=== PATIENT | male | born 1945 | race Caucasian/White ===

== ENCOUNTER 2018-10-13 09:27 | Outpatient (CLI) | payer MEDICARE, OTHER ==
--- NOTE | 2018-10-13 11:38 | CT ---
CONTRAST ENHANCED CTA ABDOMEN AND PELVIS: HISTORY: Abdominal aortic aneurysm. TECHNIQUE: Contrast-enhanced CTA of abdominal aorta and pelvis obtained. 2-D and 3-D reconstruction images performed on an independent 3-D workstation. FINDINGS: The lung bases are unremarkable. No evidence of free intraperitoneal air seen. Bilateral inguinal hernias seen with some fluid and intraperitoneal fat in the inguinal hernias. The liver and spleen are unremarkable. The gallbladder and pancreas are unremarkable. Adrenal glands unremarkable. The right kidney is unremarkable. Cortical cyst seen in the midpole of the left kidney. There is a large infrarenal abdominal aortic aneurysm, diameter measuring 5.1 x 5.1 cm, inferior to t he renal arteries. The origin of this aneurysm is approximately 1.7 cm below the takeoff of the renal arteries. Superior inferior length measures approximately 4.3 cm. The aneurysm involves the infraren al abdominal aorta not extending into the iliac arteries. Atherosclerotic calcifications seen in both common iliac arteries. There is a right distal common iliac and arterial stent. There is flow seen proximal and distal to th is. Atherosclerotic calcifications seen in the origin of the superior mesenteric artery. Inferior mesente shruthi artery is also patent. IMPRESSION: Infrarenal abdominal aortic aneurysm as described above. Transcribed Date/Time: 10/13/2018 11:43 AM
== END 2018-10-13 09:28 | disposition home or self-care (01) ==
LOC: BICCT 09:27
PROVIDERS: ATTEND Thoracic Surgery (Cardiothoracic Vascular Surgery)
DX: I71.4 Abdominal aortic aneurysm, without rupture (principal)
CPT/HCPCS: 75635; 82565

== ENCOUNTER 2018-12-06 00:10 | Outpatient (CLI) | payer MEDICARE, OTHER ==
--- NOTE | 2018-12-06 11:45 | RAD ---
EXAM: Chest Two Views 12/06/2018 11:41 AM HISTORY: Preop COMPARISON: None. FINDINGS: Heart: Heart size is normal. There are mild vascular calcifications involving the thoracic aortic arc h. Pulmonary vessels: Normal. Costophrenic angles: Clear. Lungs: No confluent pneumonia, overt edema, pleural effusion, or other acute process. Pneumothorax: None. Osseous structures:There is scattered degenerative and osteoarthritic change present. Additional findings: There is a 6 x 4 mm radiopaque foreign body within the left anterior chest wal l. IMPRESSION: No acute cardiopulmonary abnormality. Retained metallic foreign body within the anterior left chest w all.
--- NOTE | 2018-12-07 20:23 | EKG ---
Test Reason : Blood Pressure : / mmHG Vent. Rate : 067 BPM Atrial Rate : 067 BPM P-R Int : 146 ms QRS Dur : 088 ms QT Int : 366 ms P-R-T Axes : 058 -01 012 degrees QTc Int : 386 ms Sinus rhythm with marked sinus arrhythmia Possible Anterior infarct , age undetermined Abnormal ECG No previous ECGs available Confirmed by DR. Danny SALGADO MD ([id number]) on 12/07/2018 8:23:22 PM Referred By: ERMELINDA Confirmed By:DR. Danny SALGADO MD
== END 2018-12-06 00:11 | disposition home or self-care (01) ==
LOC: LABBT 00:10
PROVIDERS: ATTEND Thoracic Surgery (Cardiothoracic Vascular Surgery)
DX: Z01.818 Encounter for other preprocedural examination (principal); I71.4 Abdominal aortic aneurysm, without rupture
CPT/HCPCS: 71046; 93005; 93010

== ENCOUNTER 2018-12-06 10:15 | Inpatient (IN) | payer MEDICARE, OTHER ==
[2018-12-06 13:06] LABS: Hemoglobin 14.9 g/dL (14.0-18.0); Mean Corpuscular HGB CONC 33.1 g/dL (32.0-36.0); Mean Corpuscular Hemoglobin 33.4 pg (27.0-31.0); Mean Platelet Volume 9.2 fL (7.4-10.4); Platelet Count 190 thou/uL (130-400); RBC Distribution Width 12.7 % (11.5-14.5); Red Blood Cell (RBC) Count 4.45 mill/uL (4.70-6.10); White Blood Cell (WBC) Count 6.2 thou/uL (4.8-10.8)
[2018-12-06 13:43] LABS: Anion Gap 11 mmol/L (10-20); BUN (Urea Nitrogen) 17 mg/dL (8.4-25.7); Calc. Creatinine Clearance 0 mL/min (70-130); Calcium 9.8 mg/dL (7.8-10.44); Carbon Dioxide 22 mmol/L (23-31); Chloride 107 mmol/L (98-107); Estimated GFR-MDRD 82; Glucose 128 mg/dL (83-110); Sodium 136 mmol/L (136-145)
[2018-12-07] MEDS ORDERED: Ropivacaine 0.2% HCl/PF 20 ML ONE ×2 (06:37→10:28)
[2018-12-07] MEDS ORDERED: Fentanyl 100 MCG/2 ML VIAL ONE (06:54)
[2018-12-07] MEDS ORDERED: Midazolam HCl 2 mg/2 ml Vial ONE (06:54)
[2018-12-07] MEDS ORDERED: Fentanyl 250 MCG/5 ML VIAL ONE (07:17)
[2018-12-07] MEDS ORDERED: Nitroglycerin 50 MG/250 ML BOT 250 ML ONE (07:18)
[2018-12-07] MEDS ORDERED: Norepinephrine 4 MG/4 ML VIAL ONE (07:18)
[2018-12-07] MEDS ORDERED: Phenylephrine HCL 10 MG/ML VIAL ONE (07:18)
--- NOTE | 2018-12-07 07:28 | HP ---
DATE OF ANTICIPATED ADMISSION: 12/07/2018. CHIEF COMPLAINT: Abdominal aortic aneurysm. HISTORY OF PRESENT ILLNESS: The patient is a 73-year-old man, who recently moved here from [place]. He describes a small abdominal aortic aneurysm having been found while working up sciatica. His description is that it was still fairly small on ultrasound about 2 years ago and he is now reestablishing followup. The patient has no abdominal or back pain, his sciatica has since resolved. He had iliac stenting for right lower extremity claudication symptoms that have since resolved. PAST MEDICAL HISTORY: Significant for gout, hyperlipidemia, hypertension, benign prostatic hypertrophy, history of pericarditis. MEDICATIONS: His home medications are; 1. Allopurinol. 2. Flomax. 3. Coreg. 4. Lisinopril. 5. Norvasc. 6. Baby aspirin. ALLERGIES: HE DENIES ANY MEDICAL ALLERGIES. SOCIAL HISTORY: He had about a one to one and half pack per day smoking habit for 25 to 30 years, but quit about 20 or 30 years ago. FAMILY HISTORY: Negative for any known history of aneurysms. He says that his mother in her 40s of a "blood clot, that broke loose" and he is estranged from his father, who of unknown causes in his 50s. REVIEW OF SYSTEMS: Negative for any chest pain, shortness of breath, orthopnea, PND, and claudication. Eye, speech, facial, or extremity symptoms to suggest TIAs. PHYSICAL EXAMINATION: VITAL SIGNS: A heart rate of 91 and blood pressure 135/97. He is 5 feet 7 inches and weighs 158.5 pounds. NECK: He has no xanthelasma. No JVD. No carotid bruits. CHEST: Clear to auscultation. HEART: He has a regular rate and rhythm without any murmur. ABDOMEN: Soft and nontender. I was not able to appreciate any masses or bruits and palpable radial, femoral, and posterior tibial pulses bilaterally. His right femoral is somewhat diminished. Both femorals were associated with bruits. I was not able to appreciate popliteals or the dorsalis pedis pulses. NEUROLOGIC: Grossly nonfocal. He had no clubbing, cyanosis, or edema. ASSESSMENT AND PLAN: His CT scan showed an infrarenal aneurysm measuring about 5.1 cm both AP and transverse. It appears that he has an iliac stent on the right side that projects into the aorta and there may be some stenosis of it. His iliacs were somewhat enlarged at the common iliac level. Of note; however, that he has extensive thrombotic and atherosclerotic debris in his aorta, leaving him very small residual lumen within the aorta, the aneurysm goes up in very close proximity to his renals. There is debris in the aorta at the level of the renals and even a little bit above, all making this a very problematic EVAR approach. He has undergone cardiology screening with stress test and echocardiography that shows good left ventricular function and no evidence of ischemia and I have recommended open aorta bi-iliac grafting. Job ID: [id number]
[2018-12-07] MEDS ORDERED: Heparin 10,000 UNITS/1 ML VIAL ONE (07:54)
[2018-12-07] MEDS ORDERED: Albumin 5% 500 ML ONE ×2 (07:54→10:43)
[2018-12-07] MEDS ORDERED: Mannitol 12.5 GM/50 ML ONE ×2 (07:54→09:05)
[2018-12-07] MEDS ORDERED: Heparin 5,000 UNITS/ML VIAL ONE (08:31)
[2018-12-07] MEDS ORDERED: Ropivacaine 0.2% 550 ML 550 ML NERVE BLCK SCH (08:45)
[2018-12-07] MEDS ORDERED: Sodium Bicarb 50 MEQ/50 ML VIAL ONE (09:22)
[2018-12-07] MEDS ORDERED: Protamine Sulfate 250 MG/25 ML VIAL ONE (10:17)
[2018-12-07] MEDS ORDERED: Protamine Sulfate 50 MG/5 ML VIAL ONE (10:17)
[2018-12-07] MEDS ORDERED: ROPIVACAINE HCL NERVE BLCK SCH (10:45)
[2018-12-07 12:53] LABS: #Eosinphils 0.1 thou/uL (0.0-0.7); #Lymphocytes 2.2 thou/uL (1.20-3.40); #Monocytes 1.1 thou/uL (0.11-0.59); #Neutrophils 13.2 thou/uL (1.40-6.50); %Basophils 0.2 % (0.0-1.0); %Eosinophils 0.7 % (0.0-10.0); %Lymphocytes 13.1 % (21.0-51.0); %Monocytes 6.5 % (0.0-10.0); %Neutrophils 79.6 % (42.0-75.0); Hemoglobin 12.6 g/dL (14.0-18.0); Mean Corpuscular HGB CONC 33.1 g/dL (32.0-36.0); Mean Corpuscular Hemoglobin 33.7 pg (27.0-31.0); Mean Platelet Volume 8.4 fL (7.4-10.4); Platelet Count 148 thou/uL (130-400); RBC Distribution Width 12.3 % (11.5-14.5); Red Blood Cell (RBC) Count 3.73 mill/uL (4.70-6.10); White Blood Cell (WBC) Count 16.6 thou/uL (4.8-10.8)
--- NOTE | 2018-12-07 12:54 | RAD ---
Exam: Chest one view: HISTORY: Postoperative for bowel aortic aneurysm: COMPARISON: 12/22/2018 FINDINGS: Monitor leads overlie the chest. NG tube is in place. Right subclavian catheter tip extends into the left innominate/subclavian vein junction region. Mild bilateral vascular congestion increased linear and interstitial opacity changes in the hilar region. No confluent pneumonia. No significant p leural effusion. IMPRESSION: Bilateral vascular congestion. Right subclavian catheter with the tip extending into the left innomin ate/subclavian vein junction. Less inspiration. Continued short-term follow-up.
[2018-12-07] MEDS ORDERED: Morphine 4 MG/ML VIAL ONE ×2 (13:11→14:09)
[2018-12-07 13:18] LABS: Anion Gap 9 mmol/L (10-20); BUN (Urea Nitrogen) 15 mg/dL (8.4-25.7); Calc. Creatinine Clearance 69 mL/min (70-130); Calcium 7.8 mg/dL (7.8-10.44); Carbon Dioxide 24 mmol/L (23-31); Chloride 111 mmol/L (98-107); Estimated GFR-MDRD 78; Glucose 145 mg/dL (83-110); Potassium 4.1 mmol/L (3.5-5.1); Sodium 140 mmol/L (136-145)
[2018-12-07] MEDS ORDERED: hydrALAZINE 20 MG/ML VIAL SLOW IVP PRN ×2 (14:48→14:49)
[2018-12-07] MEDS ORDERED: Metoprolol Tartrate 5 MG/5 ML VIAL IVP PRN ×2 (14:50→14:51)
[2018-12-07] MEDS: Acetaminophen 1,000 MG in Premix Bag 1 BAG IVPB SCH ×2 (14:51→21:08)
[2018-12-07] MEDS ORDERED: Morphine 2 MG/ML SYRINGE SLOW IVP PRN (15:19)
[2018-12-07] MEDS: Sodium Chloride 0.9% 1,000 ML IV SCH ×2 (15:46→21:09)
[2018-12-07] MEDS: Morphine 10 MG/ML VIAL SLOW IVP PRN ×2 (15:47→17:06)
[2018-12-07] MEDS ORDERED: Morphine Sulfate 100 MG in Dextrose 5% in Water 98 ML IV SCH (17:24)
[2018-12-07] MEDS ORDERED: Morphine 10 MG/ML VIAL SLOW IVP PRN (17:30)
[2018-12-07 17:45] VITALS: BMI 27.9
--- NOTE | 2018-12-07 21:09 | OP ---
DATE OF PROCEDURE: 12/07/2018 PROCEDURES PERFORMED: 14 x 7 mm Hemashield [id number] iliac repair of abdominal aortic aneurysm. Right subclavian central line placement and On-Q PainBuster catheter placement x2. PREOPERATIVE DIAGNOSIS: Juxtarenal abdominal aortic aneurysm with combined aortoiliac occlusive disease. POSTOPERATIVE DIAGNOSIS: Juxtarenal abdominal aortic aneurysm with combined aortoiliac occlusive disease. WOOD BUFFER: Dr. Td Hawley. ANESTHESIA: General endotracheal anesthesia. INDICATIONS: The patient is a 73-year-old man with an abdominal aortic aneurysm found during the workup of sciatica symptoms. It has now grown to be in excess of 5 cm in size compared to the purported 2 to 2.5 cm size that he described on its original discovery when [place]. The location of the aneurysm and the heavy burden of atherosclerotic and thrombotic debris made endovascular repair quite problematic and he physiologically as well as anatomically was a good open candidate. He is now taken to the operating room for open repair of his aneurysm. FINDINGS: Heavy and complex pattern of plaquing and thrombotic debris within the juxtarenal aneurysm with essentially no neck below the renals. Heavy plaque in the proximal to mid common iliacs with right iliac stent projecting into the lumen of the aorta. Suprarenal clamp time 26 minutes. DESCRIPTION OF PROCEDURE: After informed consent was obtained, the patient was taken to the operating room, placed in supine position on the operating table. After the induction of general anesthesia, the patient's right upper chest was prepped and draped in sterile fashion and he was placed in Trendelenburg. A triple lumen central line kit was used to place a right subclavian central line by the Seldinger technique. Multiple sticks were required and multiple guidewires were required because of difficulty threading the wire and the wire kinking. Ultimately, the wire and catheter went smoothly and all 3 ports aspirated and flushed easily. The line was secured to the skin with suture. The patient's torso, groins, and lower extremities were then prepped and draped in sterile fashion. A vertical midline celiotomy incision was made from about the level of the xiphoid to just above the pubis. The abdominal cavity was entered superiorly and the incision completed. Arnol retractor was put into place. The spleen was not visualized. The liver and gallbladder appeared normal. There were no obvious abnormalities of the small bowel or colon. The stomach was visualized as well as palpated in the course of verifying positioning of the nasogastric tube. No abnormalities were appreciated. The ligament of Treitz and filmy adhesions of the small bowel to the aneurysm were lysed. The transverse colon was retracted superiorly and the small bowel to the right. The retroperitoneal tissues overlying the aneurysm were incised, sparing the inferior mesenteric vein. The incision was carried distally just a little bit beyond the bifurcation. The left renal vein was identified and the aorta was identified deep to that on either side of the vein. The renal arteries were identified and dissected free. They were soft, although the right one was somewhat tortuous. The aorta itself had extensive hard plaque palpable in it and the aneurysm extended almost all the way up to the origin of the renal arteries. There was a very short space between the superior mesenteric artery and the renals. The iliacs were identified down to their bifurcations, while there was extensive plaque within the common iliacs, they were of reasonable size, it was unclear how much of what was being palpated in the right common iliac represented stent and how much represented eccentric calcified plaque. The internal and external iliacs on the right side were soft and were separately isolated. The inferior mesenteric artery was exposed. After adequate circulation time of heparin and administration of mannitol, the renal arteries were clamped. The iliac systems were clamped and then a suprarenal aortic clamp was applied between the renal arteries and the superior mesenteric artery. The aneurysm was entered using electrocautery and scissors. There was complex plaquing and shelves of calcified plaque and thrombotic material within the aneurysm. This was debrided and brisk back bleeding from the inferior mesenteric that was unmasked in this process was controlled by suture ligating the REID at its origin. Bleeding lumbars were similarly controlled with [id number] sutures and attention was then turned to the proximal stump of the aorta. It was serially debrided and forcefully irrigated until it was cleared of loose thrombotic debris and essentially had been endarterectomized of hard plaque. A 14 x 7 mm Hemashield graft was trimmed to length and anastomosed to the proximal stump of the aorta at the level of the renal arteries with running 3-0 Prolene suture. The renal arteries were allowed to back bleed and were again clamped and then the aortic clamp was briefly released to flush the aorta and graft and then reapplied. The graft was clamped and the clamps on the aorta and renals were removed and the suture line inspected for hemostasis. Two bleeding points along the anterior portion of the suture line were controlled with pledgeted horizontal mattress sutures. The graft on the clamp was repositioned proximally in the left limb of the graft, and the left iliac system was bivalved and then orin-transected near the bifurcation. Sarot clamps were used to perform an eversion type endarterectomy there to debride the vessel of hard calcified plaque, the left limb of the graft was trimmed to length and anastomosed end to end there with running 5-0 Prolene suture. The standing rock vessels were allowed to back bleed and that limb of the graft was flushed and the suture line secured. Pressure was held in the left groin as flow into that limb was released, so that flow would initially go into the pelvis before going into the leg. The right common iliac was transected just proximal to the bifurcation and similarly endarterectomized and grafted with flow into both legs and the suture line was hemostatic. The heparin was reversed with protamine. Bleeding from one of the previously oversewn lumbars was controlled with suture and then the aneurysm wall and retroperitoneal tissues were reapproximated to cover the graft. Care was taken along the right iliac system, where the ureter had been exposed to interpose tissue between the suture line and the ureter before re-retroperitonealizing the graft. The bowel wall appeared viable with good refill. The midline fascia was closed with a running double-stranded #1 PDS. Subcutaneous tissue was irrigated. On-Q PainBuster catheters were brought out through separate stabs using an introducer kit and placed in the wound. 2-0 Vicryl was used to close the subcutaneous tissue over those catheters and 3-0 Vicryl subcuticular suture was used to close the skin. 0.2% ropivacaine was bolused in the each of the catheters to bathe the wound with ropivacaine and those catheters were then hooked up to the reservoir pump. The wound was dressed and the patient was taken to the intensive care unit in stable condition. Estimated blood loss during the procedure was 1000 mL. The patient received 1800 mL of crystalloid, 1000 mL of 5% albumin, 25 g of mannitol, and 656 mL of Cell Saver transfusion. Urine output was 800 mL. Instrument, needle, and sponge counts were correct. Job ID: [id number]
[2018-12-08] MEDS: Sodium Chloride 0.9% 1,000 ML IV SCH ×4 (00:25→12:25)
[2018-12-08] MEDS: Acetaminophen 1,000 MG in Premix Bag 1 BAG IVPB SCH ×2 (03:53→08:46)
[2018-12-08] MEDS ORDERED: Morphine 10 MG/ML VIAL SLOW IVP PRN (07:25)
[2018-12-08] MEDS ORDERED: Morphine Sulfate 100 MG in Dextrose 5% in Water 98 ML IV SCH ×2 (07:30)
[2018-12-08 07:39] LABS: #Lymphocytes 1.4 thou/uL (1.20-3.40); #Monocytes 1.3 thou/uL (0.11-0.59); %Basophils 0.4 % (0.0-1.0); %Eosinophils 0.1 % (0.0-10.0); %Monocytes 10.4 % (0.0-10.0); %Neutrophils 78.2 % (42.0-75.0); Hemoglobin 11.7 g/dL (14.0-18.0); Mean Corpuscular HGB CONC 33.8 g/dL (32.0-36.0); Mean Corpuscular Hemoglobin 34.5 pg (27.0-31.0); Mean Platelet Volume 8.9 fL (7.4-10.4); Platelet Count 136 thou/uL (130-400); RBC Distribution Width 12.9 % (11.5-14.5); Red Blood Cell (RBC) Count 3.39 mill/uL (4.70-6.10); White Blood Cell (WBC) Count 12.7 thou/uL (4.8-10.8)
--- NOTE | 2018-12-08 07:52 | RAD ---
AP view chest HISTORY: Abdominal aortic aneurysm. Chest pain. AP view chest obtained on 12/08/2018. Comparison made to previous exam from 12/07/2018. Cardiomegaly seen. Pulmonary vascular congestion seen. No evidence of acute intrathoracic abnormaliti es noted. No significant interval changes seen. A right subclavian central line is seen crossing the midline distal tip overlying the left subclavian region. IMPRESSION: Cardiomegaly and pulmonary vascular congestion.
[2018-12-08 07:55] LABS: Anion Gap 10 mmol/L (10-20); BUN (Urea Nitrogen) 16 mg/dL (8.4-25.7); Calc. Creatinine Clearance 86 mL/min (70-130); Calcium 7.6 mg/dL (7.8-10.44); Carbon Dioxide 21 mmol/L (23-31); Chloride 114 mmol/L (98-107); Estimated GFR-MDRD 88; Glucose 118 mg/dL (83-110); Potassium 4.3 mmol/L (3.5-5.1); Sodium 141 mmol/L (136-145)
[2018-12-08] MEDS: Ketorolac Tromethamine 30 MG/ML VIAL IVP SCH ×3 (09:19→21:52)
[2018-12-08] MEDS ORDERED: Potassium Chloride 40 MEQ in Premix Bag 1 BAG IVPB PRN (11:59)
[2018-12-08] MEDS ORDERED: CCU ELECTROLYTE REPLACEMENT PROTOCOL FS PRN (11:59)
[2018-12-08] MEDS ORDERED: PHOS-NAK 1 PKT PACK PO PRN ×2 (11:59)
[2018-12-08] MEDS ORDERED: Potassium Chloride 40 MEQ in Sodium Chloride 0.9% 250 ML 250 ML IVPB PRN (11:59)
[2018-12-08] MEDS ORDERED: Magnesium 2 GM/50 ML 2 GM in Premix Bag 1 BAG IVPB PRN (11:59)
[2018-12-08] MEDS ORDERED: Potassium Chloride 20 MEQ TAB PO PRN (11:59)
[2018-12-08] MEDS ORDERED: Potassium Phosphate 12 MMOL in Sodium Chloride 0.9% 250 ML 250 ML IV PRN (11:59)
[2018-12-08] MEDS ORDERED: Potassium Phosphate 9 MMOL in Sodium Chloride 0.9% 100 ML IVPB PRN (11:59)
[2018-12-08] MEDS ORDERED: Potassium Phosphate 15 MMOL in Sodium Chloride 0.9% 250 ML 250 ML IV PRN (11:59)
[2018-12-08] MEDS ORDERED: Magnesium Oxide 400 MG TAB PO PRN ×2 (11:59)
--- NOTE | 2018-12-08 12:08 | CON ---
DATE OF CONSULTATION: REASON FOR CONSULT: He is a 74-year-old gentleman, status post abdominal aortic aneurysm surgery. Postop in the ICU. He is extubated. He is having some pain, but denies difficulty breathing. His aneurysm infrarenal had increased to 5 cm, cause of several years. PAST MEDICAL HISTORY: Pertinent mainly for hypertension, BPH, previous pericarditis, previous hyperlipidemia. HOME MEDICATION: 1. Flomax 0.4. 2. Lovastatin 40. 3. Lisinopril 30. 4. Folic acid. 5. B2. 6. Aspirin. 7. Norvasc 10. 8. Allopurinol 100. 9. Tylenol p.r.n. ALLERGIES: NONE. PAST SURGERIES: Otherwise unremarkable. Tobacco, quit smoking 30 years ago. Alcohol, not significant. SOCIAL AND FAMILY HISTORY: Unremarkable. REVIEW OF SYSTEMS: Ten-point negative. PHYSICAL EXAMINATION: GENERAL: He is awake, alert, and responsive. VITAL SIGNS: Blood pressure pulse 92, respiratory rate 15, sats 96%. CHEST: No wheezing, crackles. CARDIAC: Normal S1, S2. No gallops. ABDOMEN: No masses. NEURO: He is awake, alert, responsive. Platelet count 136, H and H stable. White count 12,000. Lytes are normal. Renal function is normal. Chest x-ray is clear. IMPRESSION: 1. Status post abdominal aortic aneurysm repair. 2. Hypertension. 3. Gout. 4. Former smoker. DISPOSITION: As per Surgery. PT, supportive care. We will follow while in the ICU. 70 minutes, 50% direct patient care. Job ID: [id number]
[2018-12-09] MEDS: Sodium Chloride 0.9% 1,000 ML IV SCH ×3 (04:01→23:26)
[2018-12-09] MEDS: Ketorolac Tromethamine 30 MG/ML VIAL IVP SCH ×4 (04:03→20:34)
[2018-12-09 04:22] LABS: Anion Gap 11 mmol/L (10-20); BUN (Urea Nitrogen) 21 mg/dL (8.4-25.7); Calc. Creatinine Clearance 83 mL/min (70-130); Calcium 8.2 mg/dL (7.8-10.44); Carbon Dioxide 20 mmol/L (23-31); Chloride 115 mmol/L (98-107); Estimated GFR-MDRD 85; Glucose 129 mg/dL (83-110); Sodium 142 mmol/L (136-145)
[2018-12-09] MEDS: Metoprolol Tartrate 5 MG/5 ML VIAL IVP PRN (04:49)
--- NOTE | 2018-12-09 08:37 | PRG ---
DATE OF SERVICE: 12/09/2018 SUBJECTIVE: This morning, he is awake, alert, and responsive. Last night, he was confused. He pulled his Nayak catheter out. OBJECTIVE: VITAL SIGNS: His blood pressure is 164/85, his sats are 95% on room air, pulse 132, respiratory rate 25. GENERAL: Denies any pain or discomfort. Denies any shortness of breath. CHEST: Decreased breath sounds. No wheezing. CARDIAC: Normal S1, S2. No gallop. ABDOMEN: No masses. LABORATORY DATA: Lytes are normal. X-ray is clear, status post abdominal aortic aneurysm repair. IMPRESSION: Hypertension. PLAN: Continue PT, supportive care. Pulmonary follow while in the ICU. Job ID: [id number]
--- NOTE | 2018-12-09 08:50 | RAD ---
CHEST 1 VIEW: Date: 12/09/18 HISTORY: Abdominal aortic aneurysm. COMPARISON: 12/08/18. FINDINGS: Cardiac silhouette is magnified by projection. Pulmonary vasculature improved. Mediastinum midline. N o lobar consolidation or evidence of pneumothorax. Nasogastric tube and right subclavian central veno us catheter are no longer visible. clinical research monitor leads overlie the chest. IMPRESSION: 1. Interval improvement in radiographic appearance of pulmonary vascular congestion. 2. Removal of the central venous catheter and nasogastric tube. POS: TPC
[2018-12-09] MEDS ORDERED: Acetaminophen 1,000 MG in Premix Bag 1 BAG IVPB SCH (09:00)
[2018-12-09] MEDS: Carvedilol 3.125 MG TAB PO SCH ×2 (09:22→16:18)
[2018-12-09] MEDS: Tamsulosin HCl 0.4 MG CAP PO SCH (09:22)
[2018-12-09] MEDS: Allopurinol 100 MG TAB PO SCH ×2 (09:22→20:34)
[2018-12-09] MEDS: Aspirin 81 mg Enteric Coated Tablet PO SCH (12:51)
[2018-12-09] MEDS: Acetaminophen 1,000 MG in Premix Bag 1 BAG IVPB SCH ×3 (12:53→23:26)
--- NOTE | 2018-12-10 01:57 | CON ---
DATE OF CONSULTATION: 12/09/2018 REASON FOR CONSULTATION: Gross hematuria, BPH, and urethral trauma. HISTORY: Mr. Carrillo is a 73-year-old gentleman admitted to the hospital on 12/07/2018 for management of infrarenal abdominal aortic aneurysm. He underwent surgical therapy for the aneurysm and was a bit confused postoperatively in the ICU. While confused, he removed his Nayak catheter with the balloon inflated. He since had gross hematuria, but seems to be voiding well. His prior urologic history is significant for BPH. He has never had any prior urologic surgery. He has been on Flomax and has found it helpful. He said it is particularly helpful with the nocturia he dealt with in the past. Denies any flank pain. The voiding is occurring without significant pain at this time and he states that the urine is less bloody now than it was earlier today. PAST MEDICAL HISTORY: Peripheral vascular disease, hypertension, hyperlipidemia, history of pericarditis. CHRONIC MEDICATIONS: Flomax, lisinopril, Norvasc, Coreg and allopurinol. ALLERGIES: NO KNOWN DRUG ALLERGIES. SOCIAL HISTORY: He moved here from [place]. He has been in [place] for the last 10 months. He quit smoking about 25 years ago. Denies excessive alcohol use. FAMILY HISTORY: Noncontributory. REVIEW OF SYSTEMS: RESPIRATORY: Denies any shortness of breath. CARDIOVASCULAR: Denies chest pain or palpitations. GASTROINTESTINAL: Denies chronic constipation or diarrhea. GENITOURINARY: Please see history of present illness. NEUROLOGIC: Denies recent stroke symptoms. PHYSICAL EXAMINATION: GENERAL: He is awake. He is alert. He is in no distress at this time. VITAL SIGNS: Blood pressure 169/93, pulse 98, temperature 97.5, and O2 saturation 93% on room air. HEENT: Normocephalic, atraumatic. NECK: Supple. No masses. CHEST: Clear to auscultation. CARDIOVASCULAR: No murmurs auscultated. ABDOMEN: Soft, nontender. No peritoneal signs. GENITOURINARY: Penis without lesions. Urethral meatus appears normal. Scrotum, no lesions. Testicles palpably normal bilaterally without lesion. Digital rectal exam deferred at this time. EXTREMITIES: No edema. LABORATORY DATA: Hemoglobin 11.7, hematocrit 34.6. Chemistry; creatinine is 0.88. IMPRESSION: Mr. Carrillo is a 73-year-old gentleman who inadvertently removed his Nayak catheter with the balloon inflated while disoriented on postoperative from repair of infrarenal abdominal aneurysm. He has been voiding since then without significant difficulty and the urine is clearing. I do not recommend Nayak catheter placement at this time. It can be replaced if he develops clot retention or difficulty voiding. I do recommend that his Flomax be restarted and I will place this order. Please reconsult as needed. Job ID: [id number]
[2018-12-10] MEDS: Sodium Chloride 0.9% 1,000 ML IV SCH (04:10)
[2018-12-10] MEDS: Ketorolac Tromethamine 30 MG/ML VIAL IVP SCH (04:10)
[2018-12-10] MEDS: Metoprolol Tartrate 5 MG/5 ML VIAL IVP PRN ×2 (04:21→20:30)
[2018-12-10 05:45] LABS: Anion Gap 10 mmol/L (10-20); BUN (Urea Nitrogen) 18 mg/dL (8.4-25.7); Calc. Creatinine Clearance 95 mL/min (70-130); Calcium 8.4 mg/dL (7.8-10.44); Carbon Dioxide 21 mmol/L (23-31); Chloride 112 mmol/L (98-107); Estimated GFR-MDRD Greater than 90; Glucose 102 mg/dL (83-110); Potassium 3.5 mmol/L (3.5-5.1); Sodium 139 mmol/L (136-145)
[2018-12-10] MEDS: Tamsulosin HCl 0.4 MG CAP PO SCH (08:36)
[2018-12-10] MEDS: Carvedilol 3.125 MG TAB PO SCH ×2 (08:36→17:16)
[2018-12-10] MEDS: Aspirin 81 mg Enteric Coated Tablet PO SCH (08:36)
[2018-12-10] MEDS: Allopurinol 100 MG TAB PO SCH ×2 (08:36→20:29)
[2018-12-10] MEDS ORDERED: Furosemide 40 MG TAB PO SCH (08:45)
[2018-12-10] MEDS: Lisinopril 10 MG TAB PO SCH ×2 (09:29→20:21)
[2018-12-10] MEDS ORDERED: Carvedilol 6.25 MG TAB PO SCH (17:00)
[2018-12-10] MEDS ORDERED: Ondansetron PF 4 MG/2 ML Vial SLOW IVP PRN (17:09)
--- NOTE | 2018-12-10 18:39 | PRG ---
DATE OF SERVICE: 12/10/2018 SUBJECTIVE: Mr. Carrillo walking in the door, looks like he has never even had surgery. OBJECTIVE: GENERAL: He is in no distress. VITAL SIGNS: He is afebrile. Heart rate is 103 during the lunch hour today, respiratory rates in the teens, oximetry is 96% on room air, blood pressure 157/83. His said he was wheezing a little bit when he came out of the shower, but on chest exam, he is not wheezing now. He has never been on inhalers before. Never been told he has COPD. HEART: Regular rhythm. ABDOMEN: Soft and nontender. EXTREMITIES: Without clubbing, cyanosis, or edema. LABORATORY DATA: White count had been done for a couple days. Sodium 139, potassium 3.5, chloride 112, bicarbonate 21, BUN 18, creatinine 0.72. IMPRESSION: Status post abdominal aortic aneurysm repair, clinically stable. We will continue with physical therapy. Job ID: [id number]
[2018-12-11] MEDS: Metoprolol Tartrate 5 MG/5 ML VIAL IVP PRN (00:10)
[2018-12-11 07:17] VITALS: BP 171/95; TEMP 98.6
[2018-12-11] MEDS: Tamsulosin HCl 0.4 MG CAP PO SCH (08:15)
[2018-12-11] MEDS: Lisinopril 10 MG TAB PO SCH (08:15)
[2018-12-11] MEDS: Allopurinol 100 MG TAB PO SCH (08:16)
[2018-12-11] MEDS: Aspirin 81 mg Enteric Coated Tablet PO SCH (08:16)
[2018-12-11] MEDS ORDERED: Furosemide 40 MG TAB PO SCH (08:45)
[2018-12-11] MEDS ORDERED: Carvedilol 6.25 MG TAB PO SCH (09:00)
[2018-12-11] MEDS ORDERED: Amlodipine 5 MG TAB PO SCH (09:00)
[2018-12-13 09:35] LABS: Actual Bicarbonate (HCO3a) 20.6 mEq/L (22-28); Analyzer IN Cardio OR; Base Excess (BEa) -3.7 mEq/L (-2.0 to +3.0); CO2 Tension 35.1 mmHg (35.0-45.0); Calcium, Ionized 1.16 mmol/L (1.12-1.30); Carboxyhemoglobin (COHb) 0.8 gm% (0.0-3.0); Hemoglobin (Hb) 13.6 g/dL (14.0-18.0); O2 Tension (PaO2) 478.4 mmHg (> 70.0); Potassium - ABG Lab 4.62 mmol/L (3.70-5.30); pH, Arterial 7.39 (7.35-7.45)
[2018-12-13 10:28] LABS: Puncture Site ALINE
== END 2018-12-11 11:43 | disposition home or self-care (01) | DRG 254 ==
LOC: SURG A 12-07 06:06 → CCU 12-07 12:18 → 2NO 12-09 16:52
PROVIDERS: ADMIT Thoracic Surgery (Cardiothoracic Vascular Surgery); ATTEND Thoracic Surgery (Cardiothoracic Vascular Surgery)
PROC: 04Q00ZZ Repair Abdominal Aorta, Open Approach (ICD-10-PCS; principal; 2018-12-07)
PROC: 05H533Z Insertion of Infusion Device into Right Subclavian Vein, Percutaneous Approach (ICD-10-PCS; 2018-12-07)
DX: I74.09 Other arterial embolism and thrombosis of abdominal aorta (principal); I71.4 Abdominal aortic aneurysm, without rupture; E78.5 Hyperlipidemia, unspecified; I10 Essential (primary) hypertension; I73.9 Peripheral vascular disease, unspecified; N40.0 Benign prostatic hyperplasia without lower urinary tract symptoms; M10.9 Gout, unspecified; Z87.891 Personal history of nicotine dependence
CPT/HCPCS: 36415; 36416; 36430; 71045; 71046; 80048; 85025; 85027; 86850; 86900; 86901; 93005; 93010; A4306; C1769; J0131; J0360; J0690; J1642; J1644; J1885; J2150; J2250; J2270; J2274; J2370; J2720; J2795; J3010; J7070; P9045

== ENCOUNTER 2018-12-26 09:36 | Emergency (ER) | payer MEDICARE, OTHER ==
[2018-12-26] MEDS ORDERED: EPINEPHrine 1 MG, Admixture Fee 1 EACH in Dextrose 5% in Water 250 ML IVPB SCH (10:00)
[2018-12-26 10:20] LABS: Anion Gap 28 mmol/L (10-20); BUN (Urea Nitrogen) 22 mg/dL (8.4-25.7); Calc. Creatinine Clearance 0 mL/min (70-130); Calcium 11.7 mg/dL (7.8-10.44); Carbon Dioxide 13 mmol/L (23-31); Chloride 110 mmol/L (98-107); Estimated GFR-MDRD 60; Glucose 245 mg/dL (83-110); Sodium 143 mmol/L (136-145)
[2018-12-26 10:35] LABS: Band 6 % (5-11); Bite Cells SLIGHT = 2-5 cells (100X) (0-1/hpf); Hemoglobin 9.1 g/dL (14.0-18.0); Hypochromia SLIGHT = 6-15 cells (100X) (0-5/hpf); Lymphocytes 49 % (21-51); MDiff Complete? YES; Macrocytosis SLIGHT = 6-15 cells (100X) (0-5/hpf); Mean Corpuscular HGB CONC 30.4 g/dL (32.0-36.0); Mean Corpuscular Hemoglobin 32.1 pg (27.0-31.0); Mean Platelet Volume 7.3 fL (7.4-10.4); Metamyelocyte 1 % (0-0); Monocytes 2 % (0-10); Myelocyte 1 % (0-0); Neutrophil 41 % (42-75); Platelet Count 93 thou/uL (130-400); Platelet Morphology Comment Appears Decreased; Polychromasia SLIGHT = 2-3 cells (100X) (0-2/hpf); RBC Distribution Width 13.2 % (11.5-14.5); Red Blood Cell (RBC) Count 2.82 mill/uL (4.70-6.10); Schistocytes SLIGHT = 2-5 cells (100X) (0-1/hpf); White Blood Cell (WBC) Count 17.3 thou/uL (4.8-10.8)
[2018-12-26 10:49] LABS: CKMB 2.6 ng/mL (0-6.6)
[2018-12-26] MEDS ORDERED: EPINEPHrine 1 MG/10 ML Abboject SYRINGE ONE ×2 (11:11)
[2018-12-26] MEDS ORDERED: Sodium Bicarb 50 MEQ/50 ML Abboject 8.4% SYRINGE ONE (11:11)
[2018-12-26] MEDS ORDERED: Calcium Chloride 1 GM/10 ML Abboject SYRINGE ONE (11:11)
[2018-12-26] MEDS ORDERED: Atropine Sulfate 1 mg/10 ml Syringe ONE (11:11)
== END 2018-12-26 10:04 | disposition expired ==
LOC: ERS 09:36
DX: I46.9 Cardiac arrest, cause unspecified (principal); I10 Essential (primary) hypertension; E78.5 Hyperlipidemia, unspecified; M10.9 Gout, unspecified; Z79.82 Long term (current) use of aspirin; Z79.899 Other long term (current) drug therapy
CPT/HCPCS: 36556; 80048; 82553; 83605; 84484; 85025; 92950; 93005; 96374; 96375; J0171; J0461; J7070